=== PATIENT | female | born 1985 | race Caucasian/White ===

== ENCOUNTER → 2016-11-12 | Outpatient (CLI) | payer OTHER, BC ==
[~2016-11-12] MED LIST: ACHYD1T PO; DCS100C PO; FERR256T PO; FLUO20CA42 PO; FRS325T PO; HYDR-3812 PO; Ibuprofen PO; LORA-405 PO; OXYC-12 PO; PHEN-640 PO; POLY119P5 PO; PREN-93 PO; PREN1TAB39 PO; RABE20TA PO
--- OUTSIDE RECORDS SUMMARY | 2016-11-12 13:31 | XMS REPORT | Continuity of Care Document ---
Author Author [facility] Organization [facility] Address Unknown Phone Unavailable Care Team Providers Care Change Advisor Name Role Phone PCP Unavailable Source Comments Some departments are not documenting in the electronic medical record. If you do not see the information that you expected, contact Release of Information in the Health Information Management department at [phone] for further assistance in locating additional records.[facility] Active Allergies and Adverse Reactions No Known Allergies Current Medications Prescription Sig. Disp. Refills Start End Date Status Date FLUoxetine (PROZAC) 20 mg Take 20 mg by mouth twice Active capsule daily. triamcinolone acetonide Apply to affected area 454 g 3 09/21/20 Active (KENALOG) 0.1 % topical twice daily. Apply to red 15 ointment itchy areas twice daily. Do not apply to face, groin or underarms. desonide(+) (DESOWEN) Apply to affected area on 60 g 3 09/21/20 Active 0.05 % topical ointment face twice daily 15 betamethasone Apply to red itchy areas 45 g 2 10/31/19 Active dipropionate 0.05 % twice daily for 2 weeks. 16 topical ointment Do not apply to face, groin or underarms. Active Problems Not on file Social History Tobacco Use Types Packs/Day Years Used Date Former Smoker Last Filed Vital Signs Vital Sign Reading Time Taken Blood Pressure - - Pulse - - Temperature - - Respiratory Rate - - Height 1.651 m (5' 5") 2016 10:18 AM CDT Weight 71.668 kg (158 lb) 2016 10:18 AM CDT Body Mass Index 26.29 2016 10:18 AM CDT Oxygen Saturation - - Plan of Care Health Maintenance Due Date Last Done Comments Physical (Comprehensive) 02/01/1992 Exam Pertussis Vaccine 02/01/1996 Tetanus Vaccine 2002 Cervical Cancer Screening 2006 Influenza Vaccine 05/23/2016 Results from Last 3 Months Not on file
--- NOTE | 2016-11-12 14:34 | Diagnostic Imaging Report ---
Pelvic ultrasound. INDICATION: Pelvic pain. FINDINGS: The previous pelvic ultrasound exam performed on 12/13/2015 suggested a rupture of a cyst associated with the left ovary with a small amount of free fluid in the pelvis. The right ovary is unremarkable. On this exam, there is now a 2.7 x 2.2 x 2.4 cm benign-appearing cyst associated with the right ovary. The left ovary is generally unremarkable. The uterus is nongravid and not enlarged measuring 7.9 x 6.1 x 4.5 cm. The endometrial lining measures 11 mm (normal 5 mm or less). This finding is nonspecific. Correlation with the patient's menstrual cycle will be recommended. There is no focal mass involving the uterus to suggest a fibroid. IMPRESSION: In the interval since the previous study, a 2.7 x 2.2 x 2.4 cm benign-appearing cyst has developed on the right ovary. There is no acute pelvic abnormality noted otherwise. Dictated by: Dictated on workstation # [id number]
== END ==
LOC: RAD 11:09
PROVIDERS: ATTEND Nurse Practitioner Family
DX: N83.201 Unspecified ovarian cyst, right side (principal)
CPT/HCPCS: 76830; 76856

== ENCOUNTER 2020-02-08 20:29 | Emergency (ER) | payer OTHER, BC ==
[~2020-02-08] VITALS: Ht 165 cm; Wt 72.7 kg
[~2020-02-08 20:29] MED LIST changes: +ACHD5005 PO; -HYDR-3812 PO
[2020-02-08] MEDS ORDERED: RT-ALBUTEROL/IPRATROPIUM 3 ML (DUONEB) VIAL ONE ×2 (20:33→20:39)
[2020-02-08] MEDS ORDERED: DEXAMETHASONE 4 MG/ML SDV (DECADRON) ONE (20:34)
[2020-02-08] MEDS ORDERED: methylPREDNISolone 125 MG (Solu-MEDROL) VIAL ONE (20:35)
[2020-02-08] MEDS ORDERED: methylPREDNISolone 125 MG (Solu-MEDROL) VIAL IV STA (20:44)
[2020-02-08] MEDS ORDERED: DEXAMETHASONE 4 MG/ML SDV (DECADRON) IH ONE (20:45)
[2020-02-08] MEDS ORDERED: RT-ALBUTEROL/IPRATROPIUM 3 ML (DUONEB) VIAL INH ONE ×2 (20:45→21:00)
[2020-02-08 20:51] LABS: BASOPHILS # (AUTO) 0.1 10^3/uL (0.0-0.1); BASOPHILS % (AUTO) 1 % (0-10); EOSINOPHILS # (AUTO) 0.3 10^3/uL (0.0-0.3); EOSINOPHILS % (AUTO) 5 % (0-10); HEMATOCRIT 37 % (35-52); LYMPHOCYTES # (AUTO) 1.5 X 10^3 (1.0-4.0); LYMPHOCYTES % (AUTO) 21 % (12-44); MEAN CORPUSCULAR HEMOGLOBIN 29 PG (25-34); MEAN CORPUSCULAR HGB CONC 33 G/DL (32-36); MEAN CORPUSCULAR VOLUME 89 FL (80-99); MEAN PLATELET VOLUME 9.9 FL (7.4-10.4); MONOCYTES # (AUTO) 0.7 X 10^3 (0.0-1.0); MONOCYTES % (AUTO) 10 % (0-12); NEUTROPHILS # (AUTO) 4.5 X 10^3 (1.8-7.8); NEUTROPHILS % (AUTO) 63 % (42-75); PLATELET COUNT 268 10^3/uL (130-400); RED CELL DISTRIBUTION WIDTH 13.6 % (10.0-14.5); WHITE BLOOD COUNT 7.1 10^3/uL (4.3-11.0)
[2020-02-08 21:05] LABS: ALANINE AMINOTRANSFERASE 20 U/L (0-55); ALBUMIN 4.5 GM/DL (3.2-4.5); ALKALINE PHOSPHATASE 59 U/L (40-136); BILIRUBIN,TOTAL 0.2 MG/DL (0.1-1.0); BUN/CREATININE RATIO 10; CALCIUM 9.5 MG/DL (8.5-10.1); CARBON DIOXIDE 24 MMOL/L (21-32); CHLORIDE 105 MMOL/L (98-107); CREATININE SERUM 0.91 MG/DL (0.60-1.30); GFR ESTIMATED > 60; GLUCOSE 106 MG/DL (70-105); MAGNESIUM 2.1 MG/DL (1.6-2.4); POTASSIUM 3.2 MMOL/L (3.6-5.0); SODIUM 143 MMOL/L (135-145); TOTAL PROTEIN 7.2 GM/DL (6.4-8.2)
--- NOTE | 2020-02-08 21:11 | ED Respiratory ---
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 PT STATES SHE HAS A HX OF ASTHMA, HAS USED HER ALBUTEROL RESCUE INHALER 4-6 TIME WITH NO IMPROVEMENT, LAST DOSE FIVE MIN SPRING INSPECTOR. Source: patient History of Present Illness Date Seen by Provider: February 08, 2020 Time Seen by Provider: 20:35 Initial Comments PT ARRIVES VIA POV FROM HOME C/O ASTHMA ATTACK FOR THE LAST 30-45 MINUTES, HAD BEEN DOING CROSS-FIT EXERCISE SINCE 1699, BUT HAD FINISHED EXERCISING WHEN HER SHORTNESS OF BREATH GOT WORSE HAS BEEN HAVING SOME PROBLEMS WITH ASTHMA THE LAST 2 DAYS, BUT NOT THIS BAD HAS EXERCISE INDUCED ASTHMA AND USES HER PRO AIR INHALER EVERY DAY HAS USED IT 4-6 TIMES IN THE LAST 30-45 MINUTES--NO IMPROVEMENT, LAST USE WAS 15 MINUTES AGO. 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 NO RECENT TRAVEL PCP: [facility] Allergies and Home Medications Allergies Coded Allergies: No Known Drug Allergies (Unverified , 07/18/11) Home Medications Fluoxetine HCl 20 Mg Capsule, 20 MG PO DAILY, (Reported) Hydrocodone Bit/Acetaminophen 1 Each Tablet, 1 EACH PO Q4H PRN for PAIN Prescribed by: ULICES GONZALEZ on 12/13/152056 Lorazepam 1 Mg Tablet, 1 MG PO BID PRN for ANXIETY, (Reported) Montelukast Sodium 10 Mg Tablet, 10 MG PO DAILY Prescribed by: LUIS ORTIZ on 02/08/202157 Phenazopyridine HCl 200 Mg Tablet, 1 TAB PO Q8H PRN for SPASMS Prescribed by: ULICES GONZALEZ on 12/13/152056 Polyethylene Glycol 3350 119 Gm Powder, 17 GM PO HS PRN for CONSTIPATION Prescribed by: ULICES GONZALEZ on 12/13/152099 Prednisone 20 Mg Tab, 40 MG PO DAILY Prescribed by: LUIS ORTIZ on 5/19/20 2158 Patient Home Medication List Home Medication List Reviewed: Yes Review of Systems Review of Systems Constitutional: no symptoms reported; No chills, No diaphoresis, No dizziness, No fever, No malaise, No weakness EENTM: see HPI, nose congestion (CLEAR RUNNY NOSE--ALLERGIES) Respiratory: see HPI, cough, dyspnea on exertion, short of breath, wheezing Cardiovascular: no symptoms reported; No chest pain Gastrointestinal: no symptoms reported Genitourinary: no symptoms reported : No LMP: February 06, 2020 Musculoskeletal: no symptoms reported Skin: no symptoms reported Psychiatric/Neurological: No Symptoms Reported Hematologic/Lymphatic: No Symptoms Reported Immunological/Allergic: see HPI Past Fptjklg-[id number] Hx Past Med/Social Hx: Reviewed and Corrections made Patient Social History Alcohol Use: Denies Use Recreational Drug Use: No Smoking Status: Never a Smoker Recent Foreign Travel: No Contact w/Someone Who Travel: No Recent Infectious Disease Expo: No Immunizations Up To Date Tetanus Booster (TDap): Unknown Past Medical History Section Respiratory: Yes (EXERCISE INDUCED ASTHMA) Asthma Cardiac: No Neurological: No : No Last Menstrual Period: February 06, 2020 Reproductive Disorders: Yes Female Reproductive Disorders: Ovarian Cyst Sexually Transmitted Disease: No HIV/AIDS: No Genitourinary: No Gastrointestinal: No Musculoskeletal: No Endocrine: No HEENT: No Cancer: No Psychosocial: Yes Anxiety Integumentary: No Blood Disorders: No Adverse Reaction/Blood Tranf: No Family Medical History Patient reports no known family medical history. No Pertinent Family Hx Physical Exam Vital Signs - First Documented 02/08/20 20:32 Temp 37.0 Pulse 104 Resp 26 B/P (MAP) 119/70 (86) Pulse Ox 97 O2 Delivery Room Air Capillary Refill : Less Than 3 Seconds Height: 5'5" Weight: 160lbs. 6.0oz. 72.953719ki; 26.00 BMI Method: General Appearance: WD/WN, no apparent distress HEENT: PERRL/EOMI, normal ENT inspection Neck: normal inspection Respiratory: no respiratory distress, no accessory muscle use, wheezing (MILD EXPIRATORY WHEEZING BILATERALLY ) Cardiovascular: regular rate, rhythm, no murmur Gastrointestinal: non tender, soft Extremities: normal inspection, no pedal edema, no calf tenderness, normal capillary refill Neurologic/Psychiatric: sap ppm consultant II-XII nml as tested, no motor/sensory deficits, alert, normal mood/affect, oriented x 3 Skin: normal color, warm/dry Progress/Results/Core Measures Suspected Sepsis Recent Fever Within 48 Hours: No Infection Criteria Present: None New/Unexplained Altered Menta: No Sepsis Screen: No Definite Risk SIRS Temperature: Pulse: 104 Respiratory Rate: 26 Laboratory Tests 02/08/20 20:35: White Blood Count 7.1 Blood Pressure 119 /70 Mean: 86 Laboratory Tests 02/08/20 20:35: Creatinine 0.91, Platelet Count 268, Total Bilirubin 0.2 Results/Orders Lab Results Laboratory Tests Test 02/08/20 20:35 Range/Units White Blood Count 7.1 4.3-11.0 10^3/uL Red Blood Count 4.12 L 4.35-5.85 10^6/uL Hemoglobin 12.0 11.5-16.0 G/DL Hematocrit 37 35-52 % Mean Corpuscular Volume 89 80-99 FL Mean Corpuscular Hemoglobin 29 25-34 PG Mean Corpuscular Hemoglobin Concent 33 32-36 G/DL Red Cell Distribution Width 13.6 10.0-14.5 % Platelet Count 268 130-400 10^3/uL Mean Platelet Volume 9.9 7.4-10.4 FL Neutrophils (%) (Auto) 63 42-75 % Lymphocytes (%) (Auto) 21 12-44 % Monocytes (%) (Auto) 10 0-12 % Eosinophils (%) (Auto) 5 0-10 % Basophils (%) (Auto) 1 0-10 % Neutrophils # (Auto) 4.5 1.8-7.8 X 10^3 Lymphocytes # (Auto) 1.5 1.0-4.0 X 10^3 Monocytes # (Auto) 0.7 0.0-1.0 X 10^3 Eosinophils # (Auto) 0.3 0.0-0.3 10^3/uL Basophils # (Auto) 0.1 0.0-0.1 10^3/uL Sodium Level 143 135-145 MMOL/L Potassium Level 3.2 L 3.6-5.0 MMOL/L Chloride Level 105 98-107 MMOL/L Carbon Dioxide Level 24 21-32 MMOL/L Anion Gap 14 5-14 MMOL/L Blood Urea Nitrogen 9 7-18 MG/DL Creatinine 0.91 0.60-1.30 MG/DL Estimat Glomerular Filtration Rate > 60 BUN/Creatinine Ratio 10 Glucose Level 106 H 70-105 MG/DL Calcium Level 9.5 8.5-10.1 MG/DL Corrected Calcium 9.1 8.5-10.1 MG/DL Magnesium Level 2.1 1.6-2.4 MG/DL Total Bilirubin 0.2 0.1-1.0 MG/DL Aspartate Amino Transf (AST/SGOT) 28 5-34 U/L Alanine Aminotransferase (ALT/SGPT) 20 0-55 U/L Alkaline Phosphatase 59 40-136 U/L Total Protein 7.2 6.4-8.2 GM/DL Albumin 4.5 3.2-4.5 GM/DL Serum Test, Qualitative NEGATIVE NEGATIVE My Orders Orders - LUIS ORTIZ DO Albuterol/Ipra Inhalation Soln (Duoneb I (02/08/20 20:33) Dexamethasone Injection (Decadron Inject (02/08/20 20:34) Methylprednisolone Sod Succ (Solu-Medrol (02/08/20 20:35) Ed Iv/Invasive Line Start (02/08/20 20:44) Monitor-Rhythm Ecg Trace Only (02/08/20 20:44) Chest 1 View, Ap/Pa Only (02/08/20 20:44) Cbc With Automated Diff (02/08/20 20:44) Comprehensive Metabolic Panel (02/08/20 20:44) Hcg,Qualitative Serum (02/08/20 20:44) Magnesium (02/08/20 20:44) Albuterol/Ipra Inhalation Soln (Duoneb I (02/08/20 20:45) Dexamethasone Injection (Decadron Inject (02/08/20 20:45) Rt Request For Service (02/08/20 20:44) Methylprednisolone Sod Succ (Solu-Medrol (02/08/20 20:44) Svn Small Volume Nebulizer (02/08/20 20:44) Albuterol/Ipra Inhalation Soln (Duoneb I (02/08/20 21:00) Svn Small Volume Nebulizer (02/08/20 20:46) Albuterol/Ipra Inhalation Soln (Duoneb I (02/08/20 20:39) Sputum Culture (02/08/20 21:21) Albuterol Pre-Mix Nebs (Rt) (Proventil (02/08/20 21:24) Svn Small Volume Nebulizer (02/08/20 21:24) Medications Given in ED Current Medications Medications Dose Ordered Sig/Constantino Route Start Time Stop Time Status Last Admin Dose Admin Albuterol/ Ipratropium 3 ml ONCE ONCE INH 02/08/20 20:45 02/08/20 20:46 DC 02/08/20 20:54 3 ML Albuterol/ Ipratropium 3 ml ONCE ONCE INH 02/08/20 21:00 02/08/20 21:01 DC 02/08/20 20:54 3 ML Albuterol/ Ipratropium 3 ml STK-MED ONCE .ROUTE 02/08/20 20:39 02/08/20 20:47 DC 02/08/20 20:53 3 ML Dexamethasone Sodium Phosphate 20 mg ONCE ONCE IH 02/08/20 20:45 02/08/20 20:46 DC 02/08/20 20:54 20 MG Vital Signs/I&O 02/08/20 02/08/20 02/08/20 02/08/20 20:32 20:54 21:47 22:10 Temp 37.0 37.0 Pulse 104 102 Resp 26 17 B/P (MAP) 119/70 (86) 117/62 (86) Pulse Ox 97 98 97 97 O2 Delivery Room Air Room Air Room Air Room Air Capillary Refill : Less Than 3 Seconds Blood Pressure Mean: 86 Progress Note : Progress Note GIVEN DUO NEB TREATMENT X 2 WITH MODERATE IMPROVEMENT FOLLOWED BY HOUR LONG ALBUTEROL NEB TREATMENT. WITH COMPLETE RESOLUTION OF SYMPTOMS O2 SATS REMAINED 98-100% THROUGHOUT ER STAY NO SIGNIFICANT COUGH NOTED, BUT DID PRODUCE SMALL SPUTUM SPECIMEN--SENT FOR CULTURE. Diagnostic Imaging Comments CXR--PER RADIOLOGIST REPORT AT 2152: IMPRESSION: 1. No radiographic evidence of an acute cardiopulmonary process. Reviewed: Reviewed by Me Departure Impression Primary Impression: Acute asthma exacerbation Disposition: HOME, SELF-CARE Condition: Improved Departure-Patient Inst. Referrals: AYLA SCOTT MD (PCP/Family) Primary Care Physician Patient Instructions: Asthma, Adult (DC), Rescue vs Controller Inhalers Add. Discharge Instructions: USE YOUR ADVAIR INHALER TWICE A DAY EVERY DAY--FOR MAINTENANCE INHALER USE YOUR ALBUTEROL INHALER WITH SPACER EVERY 4 HOURS --FOR RESCUE INHALER TAKE CLARITIN OR ZYRTEC DAILY FOLLOW UP WITH [facility] THIS WEEK FOR FURTHER CARE RETURN TO ER IF WORSE All discharge instructions reviewed with patient and/or family. Voiced understanding. Scripts Prednisone (Prednisone) 20 Mg Tab 40 MG PO DAILY, #6 TAB 0 Refills Prov: LUIS ORTIZ DO 02/08/20 Montelukast Sodium (Singulair) 10 Mg Tablet 10 MG PO DAILY, #30 TAB Prov: LUIS ORTIZ DO 02/08/20 LUIS ORTIZ DO February 08, 2020 21:11
[2020-02-08] MEDS ORDERED: RT-ALBUTEROL SULF 2.5 MG/3 ML PRE-MIX VIAL INH STA (21:24)
--- NOTE | 2020-02-08 21:47 | Diagnostic Imaging Report ---
EXAM: Portal chest INDICATION: Respiratory distress. History of asthma. COMPARISON: No comparison available FINDINGS: The lungs appear clear without focal infiltrate or consolidation. There is no effusion. There is no pneumothorax. Heart size and mediastinal contours appear appropriate. Pulmonary vascularity appears normal. No significant flattening of the diaphragms evident on this frontal view. IMPRESSION: 1. No radiographic evidence of an acute cardiopulmonary process. Dictated by: Dictated on workstation # [id number]
[2020-02-08] MEDS ORDERED: PRD20T PO (21:58)
[2020-02-08] MEDS ORDERED: MONT10TA21 PO (21:58)
[2020-02-08 22:10] VITALS: BP 117/62
== END 2020-02-08 22:10 | disposition home or self-care (01) ==
LOC: EDUNIT# 20:29 → ER 20:30
DX: J45.901 Unspecified asthma with (acute) exacerbation (principal); F41.9 Anxiety disorder, unspecified
CPT/HCPCS: 36415; 71045; 80053; 83735; 84703; 85025; 87070; 87205; 93041; 94640

== ENCOUNTER → 2021-09-26 | Outpatient (CLI) | payer OTHER, BC ==
[~2021-09-26] MED LIST changes: +MONT10TA21 PO; +PRD20T PO
--- NOTE | 2021-09-26 15:41 | Diagnostic Imaging Report ---
PROCEDURE: US Non-ob pelvis comp/trans. TECHNIQUE: Multiple Real-time grayscale images were obtained of the pelvis in various projections endovaginally. Transabdominal imaging was also performed. INDICATION: Secondary dysmenorrhea. FINDINGS: The previous pelvic ultrasound exam performed on 11/12/2016 noted a 2.7 x 2.2 x 2.4 cm benign appearing cyst associated with the right ovary. There is no acute abnormality identified. On this study, both ovaries were visualized and are generally unremarkable. Each ovary contains a few subcentimeter follicles. There is no solid mass identified and the cyst associated with the right ovary seen previously has resolved. There is no pelvic mass or free fluid collection noted either. The uterus is nongravid and not enlarged measuring 7.2 x 4.2 x 5.4 mm. The endometrial lining does not appear to be significantly thickened. There is no focal mass involving the uterus to suggest a fibroid. IMPRESSION: The cyst associated with the right ovary seen previously has resolved. There is no acute pelvic abnormality identified at this time. Dictated by: Dictated on workstation # [id number]
== END ==
LOC: RAD 10:15
PROVIDERS: ATTEND Obstetrics & Gynecology
DX: N94.5 Secondary dysmenorrhea (principal)
CPT/HCPCS: 76830; 76856

== ENCOUNTER → 2021-12-19 | Outpatient (CLI) | payer OTHER, BC ==
--- NOTE | 2021-12-19 09:28 | Diagnostic Imaging Report ---
PROCEDURE: MRI right joint lower extremity without contrast. TECHNIQUE: Multiplanar, multisequence non contrast-enhanced MRI of the right lower extremity was accomplished. INDICATION: Chondromalacia patella, peripheral tear of the lateral meniscus COMPARISON: None FINDINGS: No acute fracture or dislocation is seen in the right knee. Alignment is normal. Bone island is noted in the distal femur. No significant joint effusion is seen. The articular cartilage in the patellofemoral compartment appears intact. The articular cartilage in the medial and lateral compartments appears intact. The medial meniscus demonstrates mildly increased signal posteriorly. There is no extension to the articular surface seen. There is a discoid lateral meniscus. There may be a small tear at the medial side of the discoid meniscus. The anterior posterior cruciate ligaments are intact. The medial collateral ligament is intact. The lateral collateral ligamentous complex appears intact. The extensor mechanism is intact. The medial and lateral retinacula are intact. There is mild edema about the origin of the medial head of the gastrocnemius. Soft tissues about the right knee are otherwise unremarkable. IMPRESSION: 1. Discoid lateral meniscus, with possible small tear medially. 2. Intrasubstance degeneration of the posterior medial meniscus with no tear seen. 3. The cartilage of the knee appears intact. 4. Mild tendinopathy at the origin of the medial gastrocnemius. Dictated by: Dictated on workstation # [id number]
== END ==
LOC: RAD 08:45
PROVIDERS: ATTEND Nurse Practitioner
DX: S83.261A Peripheral tear of lateral meniscus, current injury, right knee, initial encounter (principal); M17.11 Unilateral primary osteoarthritis, right knee; M22.41 Chondromalacia patellae, right knee
CPT/HCPCS: 73721